=== PATIENT | female | born 1970 | race Caucasian/White ===

== ENCOUNTER 2018-07-14 17:34 | Outpatient (REF) | payer BC, SELFPAY ==
--- NOTE | 2018-07-14 16:10 | PAPFT_PTH ---
PATIENT: Ivelisse Zamudio LOC: [facility] U#:[id number] AGE/SX: 47/F ROOM: RE07/14/[address]: Angie Guadalupe APRN : 1970 BED: DIS: 07/14/2018 SPEC #: [id number] RECD: 07/15/18 12:51 STATUS: ISAURO REHimanshu #: [id number] ADEEL: 07/14/18 16:[address]: Angie Guadalupe DEPT: [facility] Cytology RECD BY: Ann Hilario Tissues: 1 - CX/ENDOCX FOR PAP SMEARS Procedures: PAP THIN PREP/UVM Screening HPV DNA PROBE Comments: [id number]
== END 2018-07-14 17:54 ==
LOC: LBN 17:34
DX: Z12.4 Encounter for screening for malignant neoplasm of cervix (principal); Z11.51 Encounter for screening for human papillomavirus (HPV)
CPT/HCPCS: 88142; 87624

== ENCOUNTER 2019-07-23 08:02 | Outpatient (CLI) | payer BC, SELFPAY ==
[2019-07-23 10:05] LABS: ALT 29 U/L (14-59); AST 15 U/L (15-37); Albumin 3.7 g/dL (3.4-5.0); Alkaline Phosphatase 82 U/L (46-116); Anion Gap 9.4 mmol/L (3-11); BUN 19 mg/dL (7-18); Bilirubin, Total 0.7 mg/dL (0.2-1.0); CO2 25.6 mmol/L (21.0-32.0); CREATININE 1.12 mg/dL (0.55-1.02); Calcium 8.9 mg/dL (8.5-10.1); Calculated LDL 160 mg/dL; Chloride 103 mmol/L (98-107); Cholesterol 221 mg/dL (<200); Estimated GFR 51.71 (mL/min/1.73m2); Glucose 104 mg/dL (74-106); HDL Cholesterol 42 mg/dL (40-60); Sodium 138 mmol/L (136-145); Total Protein 6.7 g/dL (6.4-8.2); Triglyceride 97 mg/dL (<150)
[2019-07-26 14:35] LABS: Vitamin D 25 Total 37.6 ng/ml (30-100)
== END 2019-07-23 08:22 ==
DX: E03.9 Hypothyroidism, unspecified (principal); E78.5 Hyperlipidemia, unspecified; I10 Essential (primary) hypertension; R63.8 Other symptoms and signs concerning food and fluid intake; Z80.0 Family history of malignant neoplasm of digestive organs; E55.9 Vitamin D deficiency, unspecified
CPT/HCPCS: 36415; 80053; 80061; 82306

== ENCOUNTER 2020-03-07 04:50 | Outpatient (CLI) | payer BC, SELFPAY ==
[2020-03-07 08:32] LABS: Hemoglobin A1C 5.6 % (<5.7)
[2020-03-07 08:43] LABS: Anion Gap 8.7 mmol/L (3-11); BUN 12 mg/dL (7-18); CO2 26.3 mmol/L (21.0-32.0); CREATININE 0.96 mg/dL (0.55-1.02); Calcium 9.2 mg/dL (8.5-10.1); Chloride 102 mmol/L (98-107); Glucose 106 mg/dL (74-106); Sodium 137 mmol/L (136-145)
== END 2020-03-07 05:10 ==
DX: I10 Essential (primary) hypertension (principal); R73.01 Impaired fasting glucose; F39 Unspecified mood [affective] disorder; R63.8 Other symptoms and signs concerning food and fluid intake
CPT/HCPCS: 36415; 80048; 83036

== ENCOUNTER 2020-03-13 09:06 | Day surgery (SDC) | payer BC, SELFPAY ==
--- NOTE | 2020-03-13 06:56 | W.COLOREPORT ---
Date of service: 03/13/20 Time of Service: 10:59 Colonoscopy Report Date of procedure: 03/13/20 Pre-op diagnosis general: Colon Cancer Screening and Family history Procedure: Colonoscopy Surgeon: Rosa Garcia Anesthesia proc note operative: other (General/ASA 2/soledad Jimenez, PARKER) Estimated blood loss (mL): 3 Pathology: other (Sigmoid polyp and rectal polyp) Complications: None Disposition: same day Indications: The patient is here for Colonoscopy pre-op. Her last screening was 20+ years ago at [facility] which was unremarkable. She reports a family history of colon cancer in her father and her cousin. She has not had any bowel habit changes. -Discussed colonoscopy bowel prep as well as the procedure. Discussed possible complications of the procedure to include bleeding, pain, perforation, missed small lesion/polyp, sore throat, aspiration and adverse reaction to the medications. Questions were answered to patient?s satisfaction. No guarantees were implied or given. Discussed the option of having internal hemorrhoids banded following her Colonoscopy. She was unsure about this and is going to think this over Prep: Miralax/Dulcolax Procedure Start Time: 10:32 Procedure End Time: 10:55 Retraction Time: 16 minutes Findings: 2 small sessile polyps Procedure Description: After informed consent was obtained the patient was taken to the procedure room and placed in a left decubitous position. Monitors were applied and a time out was done. The patients name, date of , procedure, allergies to medications and metal in their body was reviewed. The patient was then sedated. Once sedated and comfortable a rectal exam was done. External exam was normal. Internal exam revealed a normal sphincter tone and no palpable masses. The scope was then introduced and retro-flexed. 2 grade 1 internal hemorrhoids were identified. The scope was then advanced to the cecum without difficulty. The ileocecal valve and appendiceal orifice were identified. The prep was good. The scope was then slowly retracted over 16 minutes back into the rectum. Polyps were removed with cold forceps in the sigmoid colon x1 and rectum x1. There were no diverticula. The scope was removed and the patient was woken up and taken back to Same day surgery in stable condition. The patient tolerated the procedure well and there were no immediate complications. Follow up: The patient should follow up in 3-7 years unless they develop changes in bowel habits or other new gastrointestinal complaints.
--- NOTE | 2020-03-13 06:57 | W.PM.DSUDISC ---
Discharge Plan Disposition Patient Disposition: HOME Condition: Good Discharge Details Reason For Visit: Colonoscopy Attending Provider: Rosa Garcia Primary Care Provider: Angie Guadalupe Home Meds and New Rx's Prescriptions: Continued hydrochlorothiazide 12.5 mg tablet 12.5 mg PO DAILY Qty: 90 RF: 4 lisinopril 10 mg tablet 10 mg PO DAILY 30 Days Qty: 90 RF: 4 cholecalciferol (vitamin D3) 50 mcg (2,000 unit) tablet 2,000 unit PO DAILY Qty: 90 RF: 3 Hold Instructions: Home Medication placed on hold at Doctor's office Discontinued polyethylene glycol 3350 17 gram/dose powder 238 g PO ONCE Qty: 238 RF: 0 bisacodyl [Dulcolax (bisacodyl)] 5 mg tablet,delayed release (DR/EC) 5 mg PO ONCE Qty: 4 RF: 0 Discharge Instructions Instructions: Hemorrhoids (DC) Additional Instructions: Findings: 2 polyps very small hemorrhoids Follow up: 3-5 years depending on final pathology For the Hemorrhoids- eat a high fiber diet, drink plenty of fluids and stay active. You can use over the counter hemorrhoid cream if you have intermittent bleeding Your hemorrhoids were very small, not bleeding and not in an area that I could band Please call if you develop: fevers >101.5 Nausea or Vomiting Abdominal pain that is not transient DAY SURGERY UNIT POST ENDOSCOPY INSTRUCTIONS 1. Because there will be medication in your system for the next 24 hours, you may feel a little sleepy. Your coordination will be affected. Therefore: a. Do not drive or operate dangerous equipment for 24 hours. b. Do not drink alcohol beverages for 24 hours (not even beer). c. Plan to go home and rest for the day. 2. Generally there are no restrictions on your activity after a day or so has gone by, but you may feel a bit fatigued for a few days. 3 After you arrive home you may have a light meal and return to a normal diet as you can tolerate it without feeling sick to your stomach. 4. After surgery, you may feel pain or discomfort. This should be only transient, but if it persists please contact your doctor. 5. If there are any questions regarding the findings of your procedure, please feel free to contact your doctor. 6. If you are unable to contact your doctor with a problem, contact the hospital at [phone]. 7. Continue all your regular medications unless directed otherwise. I understand the above instructions and have no questions. Signature of Patient or Responsible Adult Escort Date/Time Name of Responsible Adult Escort Signature of Nurse Date/Time Activity:: Activity as Tolerated Diet:: high fiber diet Discharge Orders Discharge Orders: Discharge Order (Routine); Ordered 03/13/20 Ordered By: Rosa Garcia
[2020-03-13 09:25] VITALS: BP 140/94; PULSE 92; RESP 16; TEMP 35.7; O2SAT 98
[2020-03-13] MEDS: Lactated Ringers 1,000 ML 80 ML IV (09:54)
--- NOTE | 2020-03-13 10:52 | BOWEL_PTH ---
PATIENT: Ivelisse Zamudio LOC: [facility] U#:[id number] AGE/SX: 49/F ROOM: RE03/13/[address]: Rosa Garcia MD : 1970 BED: DIS: 03/13/2020 SPEC #: [id number] RECD: 03/13/20 12:44 STATUS: ISAURO REQ #: [id number] ADEEL: 03/13/20 10:[address]: Rosa Garcia DEPT: Surgical Specimen RECD BY: Ann Hilario ENTERED: 03/13/20 12:45 SP TYPE: Bowel OTHR DR: Angie Guadalupe APRN Tissues: 1 - BIOPSY BOWEL 2 - BIOPSY BOWEL Procedures: GROSS AND MICRO LEVEL 4 Comments: [id number]
[2020-03-13 11:34] VITALS: BP 107/71; PULSE 62; RESP 16; TEMP 36.4; O2SAT 100
== END 2020-03-13 12:00 | disposition home or self-care (01) ==
LOC: SUR 09:07
PROVIDERS: Visit Provider Surgery
PROC: 0DJD8ZZ Inspection of Lower Intestinal Tract, Via Natural or Artificial Opening Endoscopic (ICD-10-PCS; CPT 45378; principal; 2020-03-13 10:45)
DX: Z12.11 Encounter for screening for malignant neoplasm of colon (principal); K63.5 Polyp of colon; K62.1 Rectal polyp; Z80.0 Family history of malignant neoplasm of digestive organs; K64.0 First degree hemorrhoids
CPT/HCPCS: 45380; 81025; 88305; J2001

== ENCOUNTER 2020-11-20 00:31 | Outpatient (CLI) | payer BC, SELFPAY ==
--- NOTE | 2020-11-20 07:18 | DI.MAMMO_ITS ---
Exam(s) MAMMO SCREENING EXAM: MAMMO SCREENING CLINICAL HISTORY: screening,Z12.39. TECHNIQUE: Bilateral full field digital CC and MLO mammographic images were obtained with 3D tomosyn thesis and utilizing computer aided detection (CAD). COMPARISON: Prior mammograms dating back to 2012, the most recent being February 2015. There been no interval mammograms since 2014.. FINDINGS: Fibroglandular tissue pattern is moderately dense, this decreasing the sensitivity mammogram for find ing hidden underlying lesions. No new significant radiograph findings in the right breast. In the left breast posteriorly there are 2 small nodular densities which are more evident than on dotty or studies, these located approximately 10 cm in from the nipple. Best seen on 3D cc imaging. There are no malignant-appearing microcalcification groups in this region or elsewhere in either breast There is no significant architectural distortion nor skin thickening-retraction. IMPRESSION: No radiographic evidence of malignancy in the right breast Two small nodules posteriorly-medially in the left breast as described above. Spot compression view and ultrasound recommended BI-RADS Category 0 - Assessment Incomplete: Need additional imaging evaluation Breast Density - Category C - Heterogeneously dense Breast density Category C or D implies that the patient has dense breast tissue. Dense breast tissue can make it harder to find cancer on a mammogram. Dense breast tissue is also associated with an incr eased risk of breast cancer. This information about the result of the mammogram report was provided to the patient to raise their awareness. Use this report when you speak with the patient about their risks for breast cancer, which includes their family history. At that time, you may recommend additional screening tests (Ultrasoun d or MRI) as these tests may add significant information. A negative radiographic report should not delay biopsy if a dominant or clinically suspicious mass is present. Up to ten percent of cancers are not identified on mammography. A negative report may reinforce clinical impression. Adenosis and dense breasts may obscure an underlying neoplasm. False positive reports average 6 to 10%. Patient will receive a letter notifying them of these results.
== END 2020-11-20 00:51 ==
DX: Z12.31 Encounter for screening mammogram for malignant neoplasm of breast (principal); R92.8 Other abnormal and inconclusive findings on diagnostic imaging of breast
CPT/HCPCS: 77063; 77067

== ENCOUNTER 2020-11-30 00:38 | Outpatient (CLI) | payer BC, SELFPAY ==
--- NOTE | 2020-11-30 | DI.US_ITS ---
Exam(s) MG MAMMO SCREEN CALL BACK UNI US BREAST LT LIMITED EXAM: MG MAMMO SCREEN CALL BACK UNI and U/S breast LT limited CLINICAL HISTORY: F/U MAMMO, TWO SMALL LT NODULAR DENSITIS. TECHNIQUE: Craniocaudal and mediolateral oblique Full Field Digital Mammography views of the left br east with Computer Aided Diagnosis followed by Tomosynthesis and left breast ultrasound. COMPARISON: Priors available for comparison. FINDINGS: Mammography/Tomosynthesis: Masses/Architectural Distortion: There are again seen 2 very well-circumscribed nodules in the medial aspect of the left breast on the additional view. No associated calcification is seen. Microcalcifictions: No suspicious pleomorphic-type are seen. Skin Thickening/Nipple Retraction: None. Left breast US: Echotexture: Normal appearance of the glandular tissue. There is a questionable nodule nodular area at the 6 o'clock position of the breast 4 cm from the nipple. Upon further direct review, it appears to represent normal fibroglandular tissue. Shadowing: No suspicious foci. Cyst: There is a 0.4 cm cyst at the 10 o'clock position of the left breast 7 cm from the nipple. Solid lesions: None seen. Ductal dilation: None. IMPRESSION: 1. No evidence of malignancy is noted. 2. A six-month follow-up left mammogram is recommended for re-evaluation. Ultrasound may be indicate d at that time. 3. The findings were discussed with the patient on the date of the examination. BI-RADS Category 3 - 6 month - Probably Benign Finding: Recommend follow-up imaging in 6 months Breast Density - Category C - Heterogeneously dense Breast density Category C or D implies that the patient has dense breast tissue. Dense breast tissue can make it harder to find cancer on a mammogram. Dense breast tissue is also associated with an incr eased risk of breast cancer. This information about the result of the mammogram report was provided to the patient to raise their awareness. Use this report when you speak with the patient about their risks for breast cancer, which includes their family history. At that time, you may recommend additional screening tests (Ultrasoun d or MRI) as these tests may add significant information. A negative radiographic report should not delay biopsy if a dominant or clinically suspicious mass is present. Up to ten percent of cancers are not identified on mammography. A negative report may reinforce clinical impression. Adenosis and dense breasts may obscure an underlying neoplasm. False positive reports average 6 to 10%. Patient will receive a letter notifying them of these results.
== END 2020-11-30 00:58 ==
DX: Z12.31 Encounter for screening mammogram for malignant neoplasm of breast (principal); R92.8 Other abnormal and inconclusive findings on diagnostic imaging of breast; N60.02 Solitary cyst of left breast; N60.82 Other benign mammary dysplasias of left breast
CPT/HCPCS: 76642; 77063; 77067

== ENCOUNTER 2021-06-05 00:27 | Outpatient (CLI) | payer BC, SELFPAY ==
--- NOTE | 2021-06-05 06:42 | DI.US_ITS ---
Exam(s) MG MAMMO DIAGNOSTIC UNI US BREAST LT LIMITED EXAM: MG MAMMO DIAGNOSTIC UNI and U/S breast LT limited CLINICAL HISTORY: 3-6 mo f/u,r92.8. TECHNIQUE: Craniocaudal and mediolateral oblique Full Field Digital Mammography views of the left br east with Computer Aided Diagnosis followed by Tomosynthesis and left breast ultrasound. COMPARISON: Priors available for comparison. FINDINGS: Mammography/Tomosynthesis: Masses/Architectural Distortion: The 2 small well-circumscribed nodules in the medial aspect of the l eft breast are unchanged. Microcalcifictions: No suspicious pleomorphic-type are seen. Skin Thickening/Nipple Retraction: None. Left breast US: The upper inner and lower inner quadrants of the left breast were evaluated sonograph ically. Echotexture: Normal appearance of the glandular tissue. Shadowing: No suspicious foci. Cyst: Simple cysts are seen in the left breast. The largest is located at 10 o'clock 7 cm from the n ipple and measures 4 x 3 x 4 mm in maximum diameter. Solid lesions: None seen. Ductal dilation: None. IMPRESSION: 1. No evidence of malignancy is noted. 2. Unless there is more urgent need, follow-up screening mammography is recommended, as per [place] [employer] guidelines. 3. The findings were discussed with the patient on the date of the examination. BI-RADS Category 2 - Benign Findings Breast Density - Category C - Heterogeneously dense Breast density Category C or D implies that the patient has dense breast tissue. Dense breast tissue can make it harder to find cancer on a mammogram. Dense breast tissue is also associated with an incr eased risk of breast cancer. This information about the result of the mammogram report was provided to the patient to raise their awareness. Use this report when you speak with the patient about their risks for breast cancer, which includes their family history. At that time, you may recommend additional screening tests (Ultrasoun d or MRI) as these tests may add significant information. A negative radiographic report should not delay biopsy if a dominant or clinically suspicious mass is present. Up to ten percent of cancers are not identified on mammography. A negative report may reinforce clinical impression. Adenosis and dense breasts may obscure an underlying neoplasm. False positive reports average 6 to 10%. Patient will receive a letter notifying them of these results.
== END 2021-06-05 00:47 ==
DX: R92.8 Other abnormal and inconclusive findings on diagnostic imaging of breast (principal); Z09 Encounter for follow-up examination after completed treatment for conditions other than malignant neoplasm; N60.02 Solitary cyst of left breast
CPT/HCPCS: 76642; 77061; 77065; G0279

== ENCOUNTER 2021-10-25 12:07 | Outpatient (REF) | payer BC, SELFPAY ==
--- NOTE | 2021-10-25 09:30 | PAPFT_PTH ---
PATIENT: Ivelisse Zamudio LOC: [facility] U#:[id number] AGE/SX: 51/F ROOM: RE10/25/[address]: Angie Guadalupe APRN : 1970 BED: DIS: 10/25/2021 SPEC #: [id number] RECD: 10/25/21 12:55 STATUS: ISAURO REQ #: [id number] ADEEL: 10/25/21 09:[address]: Olamide Yuanlaide DEPT: [facility] Cytology RECD BY: Ann Hilario ENTERED: 10/25/21 12:55 SP TYPE: PAPFT OTHR DR: Angie Guadalupe APRN Tissues: 1 - CX/ENDOCX FOR PAP SMEARS Procedures: PAP THIN PREP/UVM Screening HPV DNA PROBE Comments: [id number]
== END 2021-10-25 12:08 | disposition home or self-care (01) ==
LOC: LBN 12:07
DX: Z12.4 Encounter for screening for malignant neoplasm of cervix (principal); Z11.51 Encounter for screening for human papillomavirus (HPV)
CPT/HCPCS: 88142; 87624

== ENCOUNTER 2021-11-07 01:43 | Outpatient (CLI) | payer BC, SELFPAY ==
[2021-11-07 07:45] LABS: Hemoglobin A1C 5.7 % (<5.7)
[2021-11-07 08:27] LABS: Anion Gap 9.7 mmol/L (3-11); BUN 18 mg/dL (7-18); CO2 28.3 mmol/L (21.0-32.0); Calcium 9.2 mg/dL (8.5-10.1); Calculated LDL 228 mg/dL (<100); Chloride 102 mmol/L (98-107); Cholesterol 321 mg/dL (<200); Estimated GFR 58.22 (mL/min/1.73m2); Glucose 105 mg/dL (74-106); HDL Cholesterol 67 mg/dL (40-60); Potassium 4.2 mmol/L (3.5-5.1); Sodium 140 mmol/L (136-145); Triglyceride 132 mg/dL (<150)
== END 2021-11-07 01:44 | disposition home or self-care (01) ==
LOC: LBO 01:43
DX: I10 Essential (primary) hypertension (principal); E78.2 Mixed hyperlipidemia; R63.8 Other symptoms and signs concerning food and fluid intake
CPT/HCPCS: 36415; 80048; 80061; 83036

== ENCOUNTER → 2021-11-30 00:50 | Outpatient (CLI) | payer BC, SELFPAY ==
--- NOTE | 2021-11-30 06:45 | DI.MAMMO_ITS ---
Exam(s) MAMMO SCREENING EXAM: MAMMO SCREENING CLINICAL HISTORY: screening,z12.39,h/o simple lt breast cyst TECHNIQUE: Bilateral full field digital CC and MLO mammographic images were obtained with 3D tomosyn thesis and utilizing computer aided detection (CAD). COMPARISON: Available for comparison. FINDINGS: Masses/Architectural Distortion: None seen. Microcalcifications: No suspicious pleomorphic-type are seen. Skin Thickening/Nipple Retraction: None. IMPRESSION: 1. No significant interval change with no specific features of malignancy noted. 2. Unless there is more urgent need, screening mammography is recommended, as per [place] [employer] guidelines. BI-RADS Category 1 - Negative Breast Density - Category C - Heterogeneously dense Breast density category C or D implies that the patient has dense breast tissue. Dense breast tissue is very common and is not abnormal but dense breast tissue can make it harder to find cancer on a ma mmogram. Also, dense breast tissue may increase their breast cancer risk. This information about the result of the mammogram report was provided to the patient to raise their awareness. Use this report when you speak with the patient about their risks for breast cancer, which includes their family hist ory. At that time, you may recommend for more screening tests (Ultrasound or MRI) as they might be us eful based on their risk. A negative radiographic report should not delay biopsy if a dominant or clinically suspicious mass is present. Up to ten percent of cancers are not identified on mammography. A negative report may reinforce clinical impression. Adenosis and dense breasts may obscure an underlying neoplasm. False positive reports average 6 to 10%. Patient will receive a letter notifying them of these results.
== END ==
DX: Z12.31 Encounter for screening mammogram for malignant neoplasm of breast (principal)
CPT/HCPCS: 77063; 77067

== ENCOUNTER 2022-11-05 02:33 | Outpatient (CLI) | payer BC, SELFPAY ==
[2022-11-05 10:02] LABS: ALT 29 U/L (14-59); AST 17 U/L (15-37); Alkaline Phosphatase 77 U/L (46-116); Anion Gap 6.3 mmol/L (3-11); BUN 15 mg/dL (7-18); Bilirubin, Total 1.1 mg/dL (0.2-1.0); CO2 29.7 mmol/L (21.0-32.0); Calcium 9.3 mg/dL (8.5-10.1); Calculated LDL 205 mg/dL (<100); Chloride 104 mmol/L (98-107); Cholesterol 286 mg/dL (<200); Estimated GFR 67.36 (mL/min/1.73m2); Glucose 106 mg/dL (74-106); HDL Cholesterol 66 mg/dL (40-60); Hemoglobin A1C 5.5 % (<5.7); Potassium 4.2 mmol/L (3.5-5.1); Sodium 140 mmol/L (136-145); Total Protein 7.9 g/dL (6.4-8.2); Triglyceride 78 mg/dL (<150)
[2022-11-05 11:18] LABS: Vitamin D 25 Total 49.8 ng/mL (30-100)
== END 2022-11-05 02:34 | disposition home or self-care (01) ==
LOC: LBO 02:33
PROVIDERS: PCP Nurse Practitioner Family; Visit Provider Nurse Practitioner Family
DX: I10 Essential (primary) hypertension (principal); E78.2 Mixed hyperlipidemia; R73.09 Other abnormal glucose; E55.9 Vitamin D deficiency, unspecified
CPT/HCPCS: 36415; 80053; 80061; 82306; 83036

== ENCOUNTER 2022-12-03 01:38 | Outpatient (CLI) | payer BC, SELFPAY ==
--- NOTE | 2022-12-03 07:38 | DI.MAMMO_ITS ---
Exam(s) MAMMO SCREENING EXAM: MAMMO SCREENING CLINICAL HISTORY: screening,z12.39 TECHNIQUE: Bilateral full field digital CC and MLO mammographic images were obtained with 3D tomosyn thesis and utilizing computer aided detection (CAD). COMPARISON: Available for comparison. FINDINGS: Masses/Architectural Distortion: There are several bilateral well-circumscribed nodules present. No suspicious nodule seen. No areas of architectural distortion are present. Microcalcifications: No suspicious pleomorphic-type are seen. Skin Thickening/Nipple Retraction: None. IMPRESSION: 1. No significant interval change with no specific features of malignancy noted. 2. Unless there is more urgent need, screening mammography is recommended, as per [place] [employer] guidelines. BI-RADS Category 2 - Benign Findings Breast Density - Category C - Heterogeneously dense Breast density category C or D implies that the patient has dense breast tissue. Dense breast tissue is very common and is not abnormal but dense breast tissue can make it harder to find cancer on a ma mmogram. Also, dense breast tissue may increase their breast cancer risk. This information about the result of the mammogram report was provided to the patient to raise their awareness. Use this report when you speak with the patient about their risks for breast cancer, which includes their family hist ory. At that time, you may recommend for more screening tests (Ultrasound or MRI) as they might be us eful based on their risk. A negative radiographic report should not delay biopsy if a dominant or clinically suspicious mass is present. Up to ten percent of cancers are not identified on mammography. A negative report may reinforce clinical impression. Adenosis and dense breasts may obscure an underlying neoplasm. False positive reports average 6 to 10%. Patient will receive a letter notifying them of these results.
== END 2022-12-03 01:58 ==
LOC: DI 01:38
PROVIDERS: PCP Nurse Practitioner Family; Visit Provider Nurse Practitioner Family
DX: E78.2 Mixed hyperlipidemia (principal); Z12.31 Encounter for screening mammogram for malignant neoplasm of breast
CPT/HCPCS: 77063; 77067

== ENCOUNTER 2023-05-30 11:20 | Outpatient (CLI) | payer BC, SELFPAY ==
[2023-05-30 12:49] LABS: Abs Immature Grans 0.01 10^3/uL (0.0-0.06); Absolute Basophil Count 0.06 10^3/uL (0.0-0.2); Absolute Eosinophil Count 0.05 10^3/uL (0.0-0.7); Absolute Lymphocyte Count 1.22 10^3/uL (1.2-3.4); Absolute Monocyte Count 0.21 10^3/uL (0.1-0.8); Absolute Neutrophil Count 3.02 10^3/uL (1.2-6.7); Basophils % 1.3; Eosinophils % 1.1; HCT 43.6 % (36.0-46.0); HGB 14.7 g/dL (11.2-15.7); Immature Grans % 0.2; Lymphocytes % 26.7; MCH 30.1 pg (27.0-33.0); MCHC 33.7 % (32.0-36.0); MCV 89 fL (80-95); MPV 10.1 fL (8.0-11.0); Monocytes % 4.6; Neutrophils % 66.1; Platelet Count 334 10^3/uL (130-400); RBC 4.89 10^6/uL (3.93-5.22); RDW 12.7 % (11.7-14.6); RDW-SD 41.9 fL; WBC 4.57 10^3/uL (4.4-10.8)
[2023-05-30 13:07] LABS: ALT 23 U/L (14-59); AST 15 U/L (15-37); Albumin 3.9 g/dL (3.4-5.0); Alkaline Phosphatase 65 U/L (46-116); Anion Gap 9.2 mmol/L (3-11); BUN 11 mg/dL (7-18); Bilirubin, Total 1.4 mg/dL (0.2-1.0); CO2 27.8 mmol/L (21.0-32.0); CREATININE 1.1 mg/dL (0.55-1.02); Calcium 9.3 mg/dL (8.5-10.1); Chloride 103 mmol/L (98-107); Estimated GFR 60.08 (mL/min/1.73m2); Glucose 106 mg/dL (74-106); Potassium 3.6 mmol/L (3.5-5.1); Sodium 140 mmol/L (136-145); TSH (W/Ref FT4) 1.71 uIU/mL (0.36-3.74); Total Protein 7.6 g/dL (6.4-8.2)
== END 2023-05-30 11:21 | disposition home or self-care (01) ==
PROVIDERS: PCP Nurse Practitioner Family; Referring Provider Nurse Practitioner Family; Visit Provider Nurse Practitioner Family
DX: R53.83 Other fatigue (principal)
CPT/HCPCS: 36415; 80053; 84443; 85025

== ENCOUNTER 2023-05-30 11:25 | Outpatient (CLI) | payer BC, SELFPAY ==
--- NOTE | 2023-05-30 11:15 | RT.EKG_ITS ---
APPROVED REPORT Exam: Resting ECG Reason for Exam: Fatigue Patient Location: O HR:76 bpm ECG Measurements Heart Rate 76 AXIS MN 167 P 61 QRSd 109 QRS 29 QT 375 T 43 QTc 422 Conclusion Sinus rhythm...normal P axis, V-rate 50- 99 Normal Electrocardiogram
== END 2023-05-30 11:26 | disposition home or self-care (01) ==
LOC: DI.CM 11:26
PROVIDERS: PCP Nurse Practitioner Family; Visit Provider Nurse Practitioner Family
DX: R53.83 Other fatigue (principal)
CPT/HCPCS: 93010

== ENCOUNTER 2023-05-30 22:48 | Outpatient (REF) | payer BC, SELFPAY | END 2023-05-30 22:49 | disposition home or self-care (01) | LOC: LBN 22:48 | PROVIDERS: PCP Nurse Practitioner Family; Visit Provider Nurse Practitioner Family | DX: R35.0 Frequency of micturition (principal) | CPT/HCPCS: 87086 ==

== ENCOUNTER 2023-11-07 01:40 | Outpatient (CLI) | payer BC, SELFPAY ==
[2023-11-07 13:38] LABS: ALT 27 U/L (14-59); AST 18 U/L (15-37); Albumin 4.2 g/dL (3.4-5.0); Alkaline Phosphatase 65 U/L (46-116); Anion Gap 11.3 mmol/L (3-11); BUN 22 mg/dL (7-18); Bilirubin, Total 1.6 mg/dL (0.2-1.0); CO2 25.7 mmol/L (21.0-32.0); Calcium 9.6 mg/dL (8.5-10.1); Calculated LDL 187 mg/dL (<100); Chloride 103 mmol/L (98-107); Cholesterol 278 mg/dL (<200); Estimated GFR 66.95 (mL/min/1.73m2); Glucose 104 mg/dL (74-106); HDL Cholesterol 70 mg/dL (40-60); Sodium 140 mmol/L (136-145); Total Protein 7.7 g/dL (6.4-8.2); Triglyceride 107 mg/dL (<150)
== END 2023-11-07 01:41 | disposition home or self-care (01) ==
LOC: LOS 01:40
PROVIDERS: PCP Nurse Practitioner Family; Visit Provider Nurse Practitioner Family
DX: E78.2 Mixed hyperlipidemia (principal)
CPT/HCPCS: 36415; 80053; 80061

== ENCOUNTER 2023-11-07 11:23 | Outpatient (REF) | payer BC, SELFPAY | END 2023-11-07 11:24 | disposition home or self-care (01) | LOC: LBN 11:23 | PROVIDERS: PCP Nurse Practitioner Family; Visit Provider Nurse Practitioner Family | DX: N39.0 Urinary tract infection, site not specified (principal); B96.89 Other specified bacterial agents as the cause of diseases classified elsewhere | CPT/HCPCS: 87086 ==

== ENCOUNTER → 2023-12-08 02:01 | Outpatient (CLI) | payer BC, SELFPAY ==
--- NOTE | 2023-12-08 06:15 | DI.MAMMO_ITS ---
Exam(s) MAMMO SCREENING EXAM: MAMMO SCREENING CLINICAL HISTORY: screening,z12.39. TECHNIQUE: Bilateral full field digital CC and MLO mammographic images were obtained with 3D tomosyn thesis and utilizing computer aided detection (CAD). COMPARISON: Prior mammograms were reviewed. FINDINGS: There has been no significant change in the appearance and distribution of the fibroglandular tissue. There is continued stability of the benign-appearing bilateral nodules. There are no new spiculated masses nor malignant appearing microcalcification groups. There is no significant architectural distortion nor skin thickening-retraction. IMPRESSION: No radiographic evidence of malignancy. Stable benign findings. BI-RADS Category 2 - Benign Findings Breast Density - Category C - Heterogeneously dense Breast density Category C or D implies that the patient has dense breast tissue. Dense breast tissue can make it harder to find cancer on a mammogram. Dense breast tissue is also associated with an incr eased risk of breast cancer. This information about the result of the mammogram report was provided to the patient to raise their awareness. Use this report when you speak with the patient about their risks for breast cancer, which includes their family history. At that time, you may recommend additional screening tests (Ultrasoun d or MRI) as these tests may add significant information. A negative radiographic report should not delay biopsy if a dominant or clinically suspicious mass is present. Up to ten percent of cancers are not identified on mammography. A negative report may reinforce clinical impression. Adenosis and dense breasts may obscure an underlying neoplasm. False positive reports average 6 to 10%. Patient will receive a letter notifying them of these results.
== END ==
PROVIDERS: PCP Nurse Practitioner Family; Visit Provider Nurse Practitioner Family
DX: Z12.31 Encounter for screening mammogram for malignant neoplasm of breast (principal)
CPT/HCPCS: 77063; 77067

== ENCOUNTER 2024-05-25 02:10 | Outpatient (CLI) | payer BC, SELFPAY ==
[2024-05-25 07:50] LABS: Abs Immature Grans 0.02 10^3/uL (0.0-0.06); Absolute Basophil Count 0.08 10^3/uL (0.0-0.2); Absolute Eosinophil Count 0.13 10^3/uL (0.0-0.7); Absolute Lymphocyte Count 1.74 10^3/uL (1.2-3.4); Absolute Monocyte Count 0.32 10^3/uL (0.1-0.8); Absolute Neutrophil Count 2.35 10^3/uL (1.2-6.7); Basophils % 1.7 %; Eosinophils % 2.8 %; HCT 46.4 % (36.0-46.0); HGB 15.5 g/dL (11.2-15.7); Immature Grans % 0.4 %; Lymphocytes % 37.5 %; MCH 30.5 pg (27.0-33.0); MCHC 33.4 % (32.0-36.0); MCV 91 fL (80-95); MPV 9.7 fL (8.0-11.0); Monocytes % 6.9 %; Neutrophils % 50.7 %; Platelet Count 299 10^3/uL (130-400); RBC 5.09 10^6/uL (3.93-5.22); RDW 12.5 % (11.7-14.6); RDW-SD 42.2 fL; WBC 4.64 10^3/uL (4.4-10.8)
[2024-05-25 08:15] LABS: ALT 26 U/L (14-59); AST 16 U/L (15-37); Albumin 3.9 g/dL (3.4-5.0); Alkaline Phosphatase 78 U/L (46-116); Anion Gap 11.1 mmol/L (3-11); BUN 12 mg/dL (7-18); Bilirubin, Direct 0.2 mg/dL (0.0-0.2); Bilirubin, Total 1.47 mg/dL (0.2-1.0); CO2 25.9 mmol/L (21.0-32.0); CREATININE 1.1 mg/dL (0.55-1.02); Calcium 9.1 mg/dL (8.5-10.1); Chloride 107 mmol/L (98-107); Estimated GFR 59.71 (mL/min/1.73m2); Glucose 111 mg/dL (74-106); Potassium 4.2 mmol/L (3.5-5.1); Sodium 144 mmol/L (136-145); Total Protein 7.6 g/dL (6.4-8.2)
== END 2024-05-25 02:11 | disposition home or self-care (01) ==
LOC: LBO 02:11
PROVIDERS: PCP Nurse Practitioner Family; Visit Provider Nurse Practitioner Family
DX: R17 Unspecified jaundice (principal)
CPT/HCPCS: 36415; 80053; 82248; 85025

== ENCOUNTER 2024-11-04 02:03 | Outpatient (CLI) | payer BC, SELFPAY ==
[2024-11-04 11:22] LABS: ALT 31 U/L (14-59); AST 18 U/L (15-37); Albumin 3.9 g/dL (3.4-5.0); Alkaline Phosphatase 73 U/L (46-116); BUN 13 mg/dL (7-18); Bilirubin, Total 1.5 mg/dL (0.2-1.0); Calcium 9.1 mg/dL (8.5-10.1); Calculated LDL 203 mg/dL (<100); Chloride 101 mmol/L (98-107); Cholesterol 287 mg/dL (<200); Estimated GFR 66.53 (mL/min/1.73m2); Glucose 105 mg/dL (74-106); HDL Cholesterol 61 mg/dL (>or=50); Potassium 3.9 mmol/L (3.5-5.1); Sodium 139 mmol/L (136-145); Total Protein 7.5 g/dL (6.4-8.2); Triglyceride 117 mg/dL (<150); Vitamin D 25 Total 45 ng/mL (30-100)
== END 2024-11-04 02:04 | disposition home or self-care (01) ==
LOC: LBO 02:03
PROVIDERS: PCP Nurse Practitioner Family; Visit Provider Nurse Practitioner Family
DX: E78.2 Mixed hyperlipidemia (principal); E55.9 Vitamin D deficiency, unspecified; R17 Unspecified jaundice
CPT/HCPCS: 36415; 80053; 80061; 82306

== ENCOUNTER 2024-12-23 00:22 | Outpatient (CLI) | payer BC, SELFPAY ==
--- NOTE | 2024-12-23 07:58 | DI.MAMMO_ITS ---
Exam(s) MAMMO SCREENING EXAM: MAMMO SCREENING CLINICAL HISTORY: screening,z12.39 TECHNIQUE: Mammograms were interpreted according to the usual protocol including computer analysis with CAD system, tomosynthesis and C-view imaging. COMPARISON: 2014 through 2023 FINDINGS: The breasts are composed of heterogeneously dense fibroglandular densities, Breast Density category C. No suspicious masses or suspicious microcalcifications are seen. No skin thickening or abnormal axillary lymph nodes are seen. There has been no significant change from prior exams. IMPRESSION: BI-RADS Category 1, Negative mammogram. Yearly screening mammography is recommended. Breast Density: Category C - The breasts are heterogeneously dense, which may obscure small masses. Breast density Category C or D implies that the patient has dense breast tissue. Dense breast tissue can make it harder to find cancer on a mammogram. Dense breast tissue is also associated with an increased risk of breast cancer. This information about the result of the mammogram report was provided to the patient to raise their awareness. Use this report when you speak with the patient about their risks for breast cancer, which includes their family history. At that time, you may recommend additional screening tests (Ultrasound or MRI) as these tests may add significant information. A negative radiographic report should not delay biopsy if a dominant or clinically suspicious mass is present. Up to ten percent of cancers are not identified on mammography. A negative report may reinforce clinical impression. Adenosis and dense breasts may obscure an underlying neoplasm. False positive reports average 6 to 10%.
== END 2024-12-23 00:42 ==
LOC: DI 00:22
PROVIDERS: PCP Nurse Practitioner Family; Visit Provider Nurse Practitioner Family
DX: Z12.31 Encounter for screening mammogram for malignant neoplasm of breast (principal); R92.333 Mammographic heterogeneous density, bilateral breasts
CPT/HCPCS: 77063; 77067

== ENCOUNTER 2025-04-22 09:41 | Day surgery (SDC) | payer BC, SELFPAY ==
[2025-04-22 10:22] VITALS: BP 160/95; PULSE 86; RESP 16; TEMP 36; O2SAT 98
[2025-04-22] MEDS: Lactated Ringers 1,000 ML 80 ML IV (10:37)
--- NOTE | 2025-04-22 10:38 | W.ANESPRE ---
General Info Date of Service Date Performed: 04/22/25 Height: 5 ft 2 in Weight: 77.3 kg Body Mass Index (BMI): 31.1 Surgical Procedure: Operation Date: 04/22/25 11:20 Proposed Procedure Side Surgeon shabnam Vazquez MD Meds Allergies and Home Medications Allergies Allergy/AdvReac Type Severity Reaction Status Date / Time carrot AdvReac Severe DRY THROAT Verified 04/22/25 10:21 NUT AdvReac Severe DRY THROAT Uncoded 04/22/25 10:21 Home Medication ?Medication ?Instructions ?Recorded cholecalciferol (vitamin D3) 50 2,000 unit PO DAILY #90 tab-caps 10/04/24 mcg (2,000 unit) tablet hydrochlorothiazide 12.5 mg tablet 12.5 mg PO DAILY #90 tab-caps 10/21/24 lisinopril 20 mg tablet 20 mg PO DAILY 30 days #90 tab-caps 10/21/24 bisacodyl 5 mg tablet,delayed 5 mg PO ONCE #4 tabs 04/07/25 release (Dulcolax (bisacodyl)) polyethylene glycol 3350 17 17 g PO ONCE #238 grams 04/07/25 gram/dose oral powder Current Visit Medications: Current Medications Generic Name Dose Route Start Last Admin Trade Name Freq PRN Reason Stop Dose Admin Ringer's Solution 1,000 mls @ 80 mls/hr 04/22/25 06:00 04/22/25 10:37 IV 04/22/25 23:59 80 mls/hr INFUSION CHARLENE Administration IV Miscellaneous Supplies 1 each 04/22/25 06:00 Iv Access IV 04/22/25 23:59 DIRECTED CHARLENE Sodium Biphosphate/Sodium Phosphate 133 ml 04/22/25 06:00 Na Phosphate Enema-Adult 133 Ml Btl RI 04/22/25 23:59 DIRECTED PRN Sodium Chloride 0 ml 04/22/25 06:00 Normal Saline Flush 10 Ml Syr IV 04/22/25 23:59 PRN PRN Sodium Chloride 0 ml 04/22/25 06:00 Normal Saline 10 Ml Vial IJ 04/22/25 23:59 DIRECTED PRN Sterile Water 0 ml 04/22/25 06:00 Water,Injection,Sterile 10 Ml Vial IJ 04/22/25 23:59 DIRECTED PRN PFSH Active Problems Active Problems: Problem Status Onset Code Imbalance Acute R26.89 Skin lesions Acute L98.9 Vertigo Acute R42 Elevated bilirubin Acute R17 Onychomycosis Acute B35.1 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 Internal hemorrhoids with other complication Acute K64.8 Abnormal auditory perception of both ears Acute H93.293 Vitamin D deficiency Chronic 12/27/14 E55.9 Mood disorder Chronic 08/26/17 F39 Hypertension Chronic 12/27/14 I10 Hyperlipidemia Chronic E78.5 Hemorrhoids Chronic K64.9 Family history of colon cancer Chronic Z80.0 Skin tag, acquired Chronic L91.8 Breast lesion on mammography Chronic R92.8 Obesity (BMI 30.0-34.9) Chronic E66.9 Keratosis Acute L57.0 Decreased hearing Acute H91.90 Hyperglycemia Acute R73.9 Medical History Medical History Dystrophic nail Achilles tendinitis, left leg (10/14/17) Cough (12/18/17) Infertility, female (12/27/14) Surgical History Surgical History History of colonoscopy Biopsy of breast right breast cyst Tobacco Smoking/Tobacco Use Status: Never Passive smoking exposure: No Second hand exposure: No Alcohol Alcohol Intake: never Substance Use Substance use: Never Substance use type: does not use Counseling provided: none Vital Signs and Lab Results Vital Signs Most Recent Vital Signs in EMR: Most Recent Vital Signs Temp Pulse Resp BP Pulse Ox 36 C L 86 16 160/95 H 98 04/22/25 10:22 04/22/25 10:22 04/22/25 10:22 04/22/25 10:22 04/22/25 10:22 Imaging and Studies Imaging and Studies Study information below may be from another EMR and interpreted by another provider. Please see original notes in EMR for more complete details. EKG Summary: 05/30/23 Conclusion Sinus rhythm...normal P axis, V-rate 50- 99 Anesthesia Assessment and Plan Anesthesia History Personal History: No History of Anesthesia Complications Family History: No Family History of Anesthesia Complications Exercise Tolerance Exercise Tolerance: Metabolic Equivalents>4 Pertinent Negatives Pertinent Negatives: No Major Cardiovascular Symptoms or Complaints and No Major Pulmonary Symptoms or Complaints Cardiac & Pulmonary Exam Cardiac Exam: Normal S1/S2 Heart Sounds Pulmonary Exam: Clear Bilateral Breath Sounds Implantable Cardiac Device Does patient have a Pacemaker or an ICD?: No Airway Exam Known Difficult Airway: No Mallampati Class: 2 Mouth Opening: Normal (> 3cm) Thyromental Distance: Greater than 3 cm Neck Range of Motion: Full ROM Neck Circumference: Normal Teeth Condition: Normal Dentition ASA Classification ASA Score: ASA 2 Emergency Case?: No NPO Status NPO Status: NPO Clears >2 hours, Solids >8 hours Anesthesia Plan Resuscitation Status: Full Code Anesthesia Technique: General Anesthesia Airway Planned: Natural Airway Monitors Used: Standard Monitors
[2025-04-22 11:06] VITALS: BMI 31.1
--- NOTE | 2025-04-22 11:26 | BOWEL_PTH ---
PATIENT: Ivelisse Zamudio LOC: [facility] U#:[id number] AGE/SX: 54/F ROOM: RE04/22/[address]: Nina Vazquez MD : [id number] BED: DIS: 04/22/2025 SPEC #: [id number] RECD: 04/22/25 12:26 STATUS: ISAURO REQ #: [id number] ADEEL: 04/22/25 11:[address]: Nina Vazquez DEPT: Surgical Specimen RECD BY: Ann Hilario ENTERED: 04/22/25 12:27 SP TYPE: Bowel OTHR DR: Magdaleno Irizarry, TITO Tissues: 1 - BIOPSY BOWEL Procedures: GROSS AND MICRO LEVEL 4 Comments: [id number]
--- NOTE | 2025-04-22 11:29 | W.COLOREPORT ---
Date of service: 04/22/25 Time of Service: 11:30 Colonoscopy Report Date of procedure: 04/22/25 Pre-op diagnosis general: Screening for colorectal cancer Post-op diagnosis procedure note: same (sigmoid polyp) Procedure: Colonoscopy Surgeon: Nina Vazquez Anesthesia Type: General:No Airway Estimated blood loss (mL): 1 Pathology: other (sigmoid polyp) Complications: None Indications: screening for colorectal cancer in high risk patient Prep: Miralax/Dulcolax (excellent ) Procedure Description: Informed consent was obtained and the patient was taken to the procedure area. The patient was placed in left lateral decubitus position on the procedure table. Timeout was performed. Anesthesia was induced. A lubricated colonoscope was inserted through the anus and passed to the cecum. The cecum was identified by the ileocecal valve and the appendiceal orifice. The scope was then slowly withdrawn and the colonic and rectal mucosa examined. TI intubated and examined. It appears normal. sigmoid with flat polypoid lesion 3mm, excised with cold forceps. No diverticulosis was seen. The scope was retroflexed in the anorectal junction examined. Uncomplicated internal hemorrhoids present. Assessment and plan: Screening for colorectal cancer family history of colon cancer in father sigmoid polyp Possibly hyperplastic polyp vs small adenoma. Next colonoscopy will be due in 5 years.
[2025-04-22 11:33] VITALS: BP 104/72; PULSE 78; RESP 14; TEMP 36.5; O2SAT 97
--- NOTE | 2025-04-22 11:34 | PDOC.DSDIS_ITS ---
Date of service: 04/22/25 Discharge Plan Disposition Patient Disposition: Home Condition: Stable Discharge Details Attending Provider: Nina Vazquez Primary Care Provider: Magdaleno Morales Home Meds and New Rx's Prescriptions: Continued cholecalciferol (vitamin D3) 50 mcg (2,000 unit) tablet 2,000 unit PO DAILY Qty: 90 1RF hydrochlorothiazide 12.5 mg tablet 12.5 mg PO DAILY Qty: 90 3RF lisinopril 20 mg tablet 20 mg PO DAILY 30 Days Qty: 90 3RF Discontinued bisacodyl [Dulcolax (bisacodyl)] 5 mg tablet,delayed release (DR/EC) 5 mg PO ONCE Qty: 4 0RF Rx Instructions: Take per colonoscopy instructions provided by ordering providers office polyethylene glycol 3350 17 gram/dose powder 17 g PO ONCE Qty: 238 0RF Rx Instructions: Take per colonoscopy instructions provided by ordering providers office Discharge Instructions Additional Instructions: One small polyp in sigmoid colon seen and removed. I suspect it is another non- precancerous hyperplastic polyp, but it could be a small adenoma (precancerous polyp). I will notify you by mail within the next month of the result. You are safe, and your next colonoscopy will be due in 5 years due to your family history. Your prep was excellent. Stand Alone Forms: Anesthesia Discharge Inst., Colonoscopy Post Instructions, [place] [facility] ([facility]) Activity:: Activity as Tolerated Diet:: As Tolerated Discharge Orders Discharge Orders: Discharge Order (Routine); Ordered 04/22/25 Ordered By: Nina Vazquez DS: Diagnosis Discharge Diagnosis (1) Encounter for colonoscopy in patient with family history of colon cancer: Status: Acute (2) Polyp of sigmoid colon: Status: Acute
--- NOTE | 2025-04-22 11:45 | W.ANESPOSTOP ---
Postoperative Evaluation Date, Time and Location Date Performed: 04/22/25 Time Performed: 11:33 Patient Location: Day Surgery Unit Vital Signs Most Recent Imported Vital Signs: Most Recent Vital Signs Temp Pulse Resp BP Pulse Ox 36.5 C 78 14 104/72 97 04/22/25 11:33 04/22/25 11:33 04/22/25 11:33 04/22/25 11:33 04/22/25 11:33 Pain Score Most Recent Pain Score: Most Recent Pain Score Pain Level 0 04/22/25 11:33 Assessment Mental Status: Awake (Alert & Oriented to Patient Baseline) Airway and Respiratory Function: Patent airway with normal (patient baseline) respiratory exam Cardiovascular Function: Hemodynamically Stable Hydration Status: Adequately Hydrated Nausea & Vomiting: No Nausea or Vomiting Pain: Pt. Denies Any Pain Peripheral Nerve Block: Patient did not receive a nerve block
[2025-04-22 12:02] VITALS: BP 120/83; PULSE 66; RESP 14; TEMP 36.4; O2SAT 99
== END 2025-04-22 12:20 | disposition home or self-care (01) ==
LOC: SUR 09:41
PROVIDERS: PCP Nurse Practitioner Family; Visit Provider Surgery
PROC: 0DJD8ZZ Inspection of Lower Intestinal Tract, Via Natural or Artificial Opening Endoscopic (ICD-10-PCS; CPT 45378; principal; 2025-04-22 11:15)
DX: Z12.11 Encounter for screening for malignant neoplasm of colon (principal); Z80.0 Family history of malignant neoplasm of digestive organs; K63.5 Polyp of colon; K64.8 Other hemorrhoids
CPT/HCPCS: 45380; 88305; J2003; J2704